=== PATIENT | male | born 1975 | race African-American/Black ===

== ENCOUNTER 2019-01-24 14:03 | Inpatient (IN) | payer SELFPAY ==
[2019-01-24 14:32] LABS: #Basophils 0.1 thou/uL (0.0-0.2); #Eosinphils 0.8 thou/uL (0.0-0.7); #Lymphocytes 2.7 thou/uL (1.20-3.40); #Monocytes 0.9 thou/uL (0.11-0.59); #Neutrophils 9.3 thou/uL (1.40-6.50); %Eosinophils 5.8 % (0.0-10.0); %Lymphocytes 19.8 % (21.0-51.0); %Monocytes 6.5 % (0.0-10.0); Hemoglobin 12.8 g/dL (14.0-18.0); Mean Corpuscular HGB CONC 31.3 g/dL (32.0-36.0); Mean Corpuscular Hemoglobin 27.6 pg (27.0-31.0); Mean Corpuscular Volume 88.4 fL (78.0-98.0); Mean Platelet Volume 7.3 fL (7.4-10.4); Platelet Count 308 thou/uL (130-400); RBC Distribution Width 14.5 % (11.5-14.5); Red Blood Cell (RBC) Count 4.62 mill/uL (4.70-6.10); White Blood Cell (WBC) Count 13.9 thou/uL (4.8-10.8)
[2019-01-24 14:55] LABS: ALT (SGPT) 47 U/L (8-55); AST (SGOT) 29 U/L (5-34); Albumin 3.9 g/dL (3.5-5.0); Alkaline Phosphatase 34 U/L (40-150); Anion Gap 12 mmol/L (10-20); BUN (Urea Nitrogen) 14 mg/dL (8.9-20.6); Bilirubin, Total 0.6 mg/dL (0.2-1.2); Calc. Creatinine Clearance 0 mL/min (70-130); Calcium 9.3 mg/dL (7.8-10.44); Carbon Dioxide 28 mmol/L (22-29); Chloride 102 mmol/L (98-107); Estimated GFR-MDRD 66; Globulin 2.5 g/dL (2.4-3.5); Glucose 108 mg/dL (70-105); Lipase 7 U/L (8-78); Potassium 4.6 mmol/L (3.5-5.1); Protein, Total 6.4 g/dL (6.0-8.3); Sodium 137 mmol/L (136-145)
[2019-01-24] MEDS ORDERED: ISOVUE-370 76%-LOCM 1 ML ONE (15:10)
[2019-01-24 17:26] LABS: Bilirubin Negative (Negative); Blood, Urine Negative (Negative); Clarity CLEAR (Clear); Glucose, Urine (Dipstick) Negative (Negative); Leukocyte Negative (Negative); Nitrite Negative (Negative); Protein, Urine (Dipstick) Negative (Neg-Trace); Specific Gravity, Urine 1.016 (1.002-1.036); pH, Urine 6.5 (5.0-9.0)
[2019-01-24] MEDS ORDERED: Morphine 4 MG/ML VIAL ONE (18:02)
[2019-01-24] MEDS ORDERED: Ondansetron PF 4 MG/2 ML Vial ONE (18:02)
[2019-01-24 18:09] LABS: Troponin I 0.038 ng/mL (< 0.028)
--- NOTE | 2019-01-24 19:10 | CT ---
CT abdomen and pelvis with IV contrast HISTORY: Abdomen pain. Nausea. COMPARISON: 10/29/2007. FINDINGS: Lung bases are clear. Gallbladder is surgically absent. Liver, spleen, kidneys, adrenal gla nds, and pancreas are unremarkable. Nonspecific lymph nodes throughout the retroperitoneum. No evidence of bowel obstruction. Urinary bladder is decompressed. IMPRESSION: No significant abnormalities are demonstrated.
[2019-01-24 19:18] LABS: Troponin I 0.048 ng/mL (< 0.028)
--- NOTE | 2019-01-24 20:20 | RAD ---
PORTABLE CHEST 01/24/19 PROVIDED CLINICAL HISTORY: Myocardial infarction, abdominal pain. FINDINGS: No comparisons. Evaluation is limited by patient body habitus. The cardiac silhouette appears enlarged. Prominence of the pulmonary vasculature and pulmonary interstitium. No lobar consolidation, pleural fluid or pneum othorax apparent. IMPRESSION: Cardiomegaly and findings suggesting congestive failure. POS: DINORAH
[2019-01-24] MEDS ORDERED: Aspirin Chewable 81 MG TAB ONE (20:23)
[2019-01-24] MEDS ORDERED: Nitroglycerin 2% Ointment 1 INCH/1 GM Packet ONE (20:52)
[2019-01-24] MEDS ORDERED: hydrALAZINE 20 MG/ML VIAL SLOW IVP PRN (21:54)
[2019-01-24] MEDS ORDERED: Carvedilol 3.125 MG TAB PO SCH (22:00)
[2019-01-24] MEDS ORDERED: Nitroglycerin 2% Ointment 1 INCH/1 GM Packet TOP SCH (22:00)
[2019-01-24] MEDS ORDERED: Furosemide 20 MG/2 ML VIAL SLOW IVP SCH (22:00)
[2019-01-25 01:40] VITALS: BMI 40.4
--- NOTE | 2019-01-25 02:23 | HP ---
CHIEF COMPLAINT: Abdominal pain. HISTORY OF PRESENT ILLNESS: The patient is a 43-year-old male who has not seen a doctor in some time. He reports that he had the onset of some epigastric abdominal pain about 3 days ago, radiating to the right upper quadrant area. He reports he had something similar to this in the past. When he had stones removed, he is unsure given his history of whether this is gallstones or kidney stones, but he does show some right upper quadrant laparoscopic scars consistent with the cholecystectomy (his CT scan does confirm that he had a cholecystectomy). He had that laparoscopic surgery about 15 years ago. He reports that the pain starts in the xiphoid area and then moves more to the right. Along with this, he has been feeling more short of breath. He has no cough, no fever, but he does admit to orthopnea and he is typically sitting up and leaning on something in order to try to sleep. He does snore loudly. He denies any recent viral or flu-like illnesses. He does admit to some lightheadedness. States he had an episode of vomiting here in the emergency department, but did not have any prior to that. REVIEW OF SYSTEMS: The patient reports he has had an extremely regular bowel regimen three times a day and he is very proud of that. Normal bladder habits. He believes he may have some trace edema. He has had some weight gain that he is aware of. All other systems were reviewed and all pertinent positives and negatives noted in the history of present illness. PAST MEDICAL HISTORY: None. The patient has no prior diagnosis of hypertension, although he does say at one point, he tried to donate blood and was told at that time that his blood pressure was significantly elevated and he should see a doctor. PAST SURGICAL HISTORY: Cholecystectomy. SOCIAL HISTORY: The patient smokes about a pack of cigarettes per week. He drinks one bottle of liquor per month. He denies drugs. He is . He is full code. His is his surrogate decision maker. FAMILY HISTORY: Notable for hypertension, diabetes, and heart disease. His father had an MA about 1 year ago at the age of 56. ALLERGIES: NONE. MEDICATIONS: None. PHYSICAL EXAMINATION: VITAL SIGNS: Most recent blood pressure 150/110, pulse 103, respirations 20, temperature 98.4, O2 saturation 97% on room air. GENERAL APPEARANCE: Age-appropriate male, slightly obese, in no distress. He is awake, alert, oriented, pleasant, and cooperative. HEENT: PERRL. He has no OP lesions, but he does have a generous tongue and soft palate giving a relatively small airway. NECK: Neck is thick, supple, symmetric. No lymphadenopathy, JVD, or bruits. HEART: Regular rate and rhythm without murmurs, gallops, or rubs. LUNGS: Clear to auscultation bilaterally with good chest wall expansion and air exchange. ABDOMEN: Soft, nontender, and nondistended. There is tenderness to palpation in the epigastrium and the right upper quadrant with mild guarding. No masses or organomegaly. EXTREMITIES: He has trace pretibial pitting edema bilaterally. Good peripheral pulses present. NEUROLOGICAL: Fully intact. Good range of motion in all extremities and spontaneous movement. PSYCH: Normal affect and behavior. LABORATORY DATA: White count 13.9, hemoglobin 12.8. Sodium 137, potassium 4.6, chloride 102, BUN 14, creatinine is 1.4, glucose 108. LFTs normal. Troponin 0.038 with subsequent 0.048. Lipase is 7. Urinalysis negative. Chest x-ray shows some evidence of cardiomegaly with some pulmonary edema or vascular engorgement. CT abdomen and pelvis is unremarkable with the surgically absent gallbladder. EKG shows sinus tach, possibly some left atrial enlargement. IMPRESSION AND PLAN: 1. Abdominal pain. The patient had a history of cholecystectomy. He has epigastric and right upper quadrant tenderness. His CT abdomen was negative. The only concerning issue really is the fact that he had one episode of vomiting earlier, although he has subsequently eaten without difficulty and he has a bit of leukocytosis. We will continue to monitor that situation for now and keep him on a PPI. 2. New onset evidence of congestive heart failure. We will check a BNP and check echocardiogram. Get a Cardiology consult. The patient smokes and likely has had very elevated blood pressures for a very long time, possibly resulting in some hypertensive cardiomyopathy, ischemic cardiomyopathy is a possibility as well. We will see what we find on the echocardiogram. May need a heart catheterization as well. 3. Elevated troponins appears to most likely be a type 2 myocardial infarction with demand ischemia secondary to elevated blood pressure and decompensation of heart failure, although at this point, cannot rule out a type 1 just yet. We will continue with telemetry and continue checking troponins. We will maintain nitroglycerin and actually increased that to 2 inches. He has had an aspirin. We will continue with aspirin. He also will get a dose of Lasix here. 4. Hypertension. The patient has severe hypertension. He has no history of this, but it sounds like he did have a check once previously and it was very high. We will give him Coreg 3.125 starting now. We will also increase his nitroglycerin paste to 2 inches and give him a dose of Lasix. 5. Renal. The patient's estimated GFR is at 66. It is unknown what his normal baseline creatinine is. Therefore, it is unable to determine if this is chronic or new. 6. Tobacco abuse. Counseled the patient at length regarding the need to discontinue smoking as it is contributing to his cardiac issues. 7. Leukocytosis, likely demargination from the abdominal pain, acute episode. We will recheck in the morning. Job ID: [id number]
[2019-01-25 04:23] LABS: #Basophils 0.1 thou/uL (0.0-0.2); #Eosinphils 0.7 thou/uL (0.0-0.7); #Lymphocytes 3.4 thou/uL (1.20-3.40); #Neutrophils 8.2 thou/uL (1.40-6.50); %Eosinophils 5.1 % (0.0-10.0); %Lymphocytes 25.3 % (21.0-51.0); %Monocytes 7.5 % (0.0-10.0); %Neutrophils 61.2 % (42.0-75.0); Hemoglobin 12.2 g/dL (14.0-18.0); Mean Corpuscular HGB CONC 31.8 g/dL (32.0-36.0); Mean Corpuscular Hemoglobin 27.9 pg (27.0-31.0); Mean Corpuscular Volume 87.9 fL (78.0-98.0); Mean Platelet Volume 7.4 fL (7.4-10.4); Platelet Count 299 thou/uL (130-400); RBC Distribution Width 14.5 % (11.5-14.5); Red Blood Cell (RBC) Count 4.36 mill/uL (4.70-6.10); White Blood Cell (WBC) Count 13.4 thou/uL (4.8-10.8)
[2019-01-25 04:46] LABS: Anion Gap 15 mmol/L (10-20); BUN (Urea Nitrogen) 15 mg/dL (8.9-20.6); Calc. Creatinine Clearance 109 mL/min (70-130); Calcium 9.1 mg/dL (7.8-10.44); Carbon Dioxide 26 mmol/L (22-29); Cardiac Risk 4.3 (Less than 4.5); Chloride 102 mmol/L (98-107); Cholesterol 153 mg/dl (< 200 Desired); Estimated GFR-MDRD 62; Glucose 95 mg/dL (70-105); HDL Cholesterol 36 mg/dL (>60 Neg Risk); LDL Cholesterol, Calculated 98 mg/dL; Potassium 4.2 mmol/L (3.5-5.1); Sodium 139 mmol/L (136-145); Triglycerides 97 mg/dL (Less than 150)
[2019-01-25] MEDS ORDERED: Furosemide 40 MG/4 ML VIAL SLOW IVP SCH (08:45)
[2019-01-25] MEDS: Enoxaparin Sodium 40 MG/0.4 ML SYRINGE SC SCH (09:44)
[2019-01-25] MEDS: Aspirin 81 mg Enteric Coated Tablet PO SCH (09:45)
[2019-01-25] MEDS: Carvedilol 3.125 MG TAB PO SCH ×2 (09:45→16:33)
[2019-01-25] MEDS: Nitroglycerin 2% Ointment 1 INCH/1 GM Packet TOP SCH ×2 (09:45→20:56)
[2019-01-25] MEDS: Furosemide 40 MG/4 ML VIAL SLOW IVP SCH (09:46)
--- NOTE | 2019-01-25 13:01 | CON ---
DATE OF CONSULTATION: 01/25/2019 INDICATION FOR CONSULTATION: A 43-year-old patient with shortness of breath, probably new onset congestive heart failure, and indeterminate cardiac enzymes. HISTORY OF PRESENT ILLNESS: This is a 43-year-old gentleman, who has had no previous cardiac history that he is aware, but does have a history of hypertension, which has not been treated. He complained of some abdominal discomfort. He has had cholecystectomy in the past. He presented to the hospital. Also, he complains of shortness of breath. He has had shortness of breath for quite some time. He has known about his high blood pressure in the past, but has felt that it was just due to family situations. 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 He denied any chest pain, but did have abdominal discomfort. He has continued to smoke about a pack every week of cigarettes and has some alcohol use, perhaps a bottle of whiskey every week. When he presented to the hospital, his white blood cell count was elevated, concerning for the abdominal discomfort, but his cardiac enzymes were indeterminate. His BNP also was elevated, it is now over 1203. He had an echocardiogram this morning, which shows ejection fraction of probably 20% to 25%. At this time, he denies chest pain. He is more comfortable, but does continue to have some abdominal discomfort. He also tells me that he occasionally has lightheadedness. PAST MEDICAL HISTORY: Significant for the cholecystectomy and hypertension. SOCIAL HISTORY: He is . He has 7 children. He smokes a pack cigarettes a week. He has alcohol use. 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 MEDICATIONS: Prior to admission were none. ALLERGIES: NONE. PRESENT MEDICATIONS: Include; 1. Aspirin. 2. Coreg. 3. Lovenox. 4. Lasix. 5. Hydralazine. 6. Nitroglycerin paste. 7. Protonix. REVIEW OF SYSTEMS: He complains of some blurred vision and abdominal pain. Otherwise, 12-point review of systems unremarkable except for what is noted in history of present illness. PHYSICAL EXAMINATION: GENERAL: Reveals a middle-aged gentleman, who is overweight. Blood pressure is 140/96 at this time and it was elevated previously at 162/95, and I believe in the emergency room earlier was also elevated on the first blood pressure here was 155/110. He seems to be doing much better with medical management. Heart rate is 94, shows a sinus rhythm. He is afebrile and respiratory rate is 18. HEENT: Reveals head to be normocephalic and atraumatic. NECK: Carotid pulses are present without any bruits. CHEST: Clear to auscultation. CARDIOVASCULAR: Reveals a regular rate and rhythm. Heart sounds are somewhat distant, but the patient is obese. Did not hear any significant murmurs, heaves, thrills, bruits, or rubs. No S3 or S4 was appreciated. ABDOMEN: Slightly tender. He has positive bowel sounds. I did not palpate any masses, but the patient has tenderness. Unable to fully evaluate due to the tenderness. EXTREMITIES: Show no clubbing, cyanosis, or edema. Pedal pulses are present. NEUROLOGIC: The patient appears to be fully intact. SKIN: Warm and dry. LABORATORY DATA: EKG shows a normal sinus rhythm with no acute changes. Chest x-ray shows cardiomegaly with signs of congestive heart failure. IMPRESSION AND PLAN: 1. New onset congestive heart failure. I will agree with the present management. I reviewed his medications. I would continue his Lasix and hydralazine as well as a nitroglycerin. 2. Cardiomyopathy. We will continue to follow this. He already perhaps meets the requirements for an AICD. He may need to have a LifeVest prior to discharge. 3. Abdominal pain will be dealt with by the primary care service. 4. History of tobacco abuse. He will absolutely need to stop smoking. We have discussed this issue today. 5. History of renal insufficiency, most likely associated with his hypertension. 6. Elevated WBC, which may be due to abdominal etiology. We are more than happy to continue to follow the patient with you, but we will continue his medications and titrate as possible. When the patient is discharged, he may need to follow up with the [facility] Failure [facility]. He does not have any significant symptoms of the heart failure at this time. He says he does complain of shortness of breath with minimal exertion. At some point in time, he may need also undergo a stress test to rule out evidence of underlying ischemia as a possible etiology of his cardiomyopathy. I suspect this is due to hypertension. Job ID: [id number]
--- NOTE | 2019-01-25 14:09 | PDOC.PN ---
- Subjective Encounter Start Date: 01/25/19 Encounter Start Time: 14:07 Subjective: feels much better.no CP/SOB.no cough - Objective Resuscitation Status - Order Detail: 01/24/19 21:49 Resuscitation Status Routine Resuscitation Status: FULL: Full Resuscitation MAR Reviewed: Yes Vital Signs & Weight: Vital Signs (12 hours) Temp Pulse Resp BP Pulse Ox 01/25/19 12:00 98.0 F 111 H 20 143/113 H 98 01/25/19 09:38 92 L 01/25/19 07:00 97.8 F 94 18 148/96 H 92 L 01/25/19 03:49 97.8 F 94 16 162/95 H 92 L Weight Weight 261 lb 6.4 oz I&O: 01/24/19 01/25/19 01/26/19 06:59 06:59 06:59 Intake Total 400 Output Total 1600 Balance -1200 Result Diagrams: 01/25/19 04:00 01/25/19 04:00 Additional Labs: Laboratory Tests 01/24/19 01/24/19 01/24/19 14:20 14:20 14:20 Creatinine 1.41 H Troponin I 0.038 H B-Natriuretic Peptide 965.7 H 01/24/19 01/24/19 01/24/19 18:43 21:51 22:07 Creatinine Troponin I 0.048 H 0.060 H B-Natriuretic Peptide 1203.1 H 01/25/19 04:00 Creatinine 1.49 H Troponin I B-Natriuretic Peptide Phys Exam - Physical Examination Constitutional: NAD HEENT: PERRLA, moist MMs, sclera anicteric, oral pharynx no lesions Neck: no nodes, no JVD, supple, full ROM Respiratory: no wheezing, no rhonchi, clear to auscultation bilateral basilar crackles Cardiovascular: RRR, no significant murmur Gastrointestinal: soft, non-tender, no distention, positive bowel sounds Musculoskeletal: no edema, pulses present Neurological: non-focal, normal sensation, moves all 4 limbs Psychiatric: normal affect, A&O x 3 Skin: no rash Dx/Plan (1) Acute CHF Code(s): I50.9 - HEART FAILURE, UNSPECIFIED Status: Acute Qualifiers: Heart failure type: unspecified Qualified Code(s): I50.9 - Heart failure, unspecified Comment: ECHO pending (2) Hypertension, uncontrolled Code(s): I10 - ESSENTIAL (PRIMARY) HYPERTENSION Status: Acute (3) CB (acute kidney injury) Code(s): N17.9 - ACUTE KIDNEY FAILURE, UNSPECIFIED Status: Acute (4) Type 2 myocardial infarction Code(s): I21.A1 - MYOCARDIAL INFARCTION TYPE 2 Status: Acute (5) Tobacco abuse Code(s): Z72.0 - TOBACCO USE Status: Chronic Comment: 1 pack per week - Plan DVT proph w/SCDs BP better controlled.stop lisinopril as Cr higher.baseline unknown -: restart hydralazine and cont TD NG.on BB -: cont diuresis w close monitoring of renal Fx -: suspect hypertensive cardionuopathy.ECHO pending. -: no more abd pain-suspect bowel wall edema from CHF. * . Review of Systems - Review of Systems Constitutional: negative: fever, chills, sweats, weakness, malaise, other ENT: negative: Ear Pain, Ear Discharge, Nose Pain, Nose Discharge, Nose Congestion, Mouth Pain, Mouth Swelling, Throat Pain, Throat Swelling, Other Respiratory: SOB with Excertion Cardiovascular: negative: chest pain, palpitations, orthopnea, paroxysmal nocturnal dyspnea, edema, light headedness, other Gastrointestinal: negative: Nausea, Vomiting, Abdominal Pain, Diarrhea, Constipation, Melena, Hematochezia, Other Genitourinary: negative: Dysuria, Frequency, Incontinence, Hematuria, Retention , Other Musculoskeletal: negative: Neck Pain, Shoulder Pain, Arm Pain, Back Pain, Hand Pain, Leg Pain, Foot Pain, Other Neurological: negative: Weakness, Numbness, Incoordination, Change in Speech, Confusion, Seizures, Other - Medications/Allergies Allergies/Adverse Reactions: Allergies Allergy/AdvReac Type Severity Reaction Status Date / Time No Known Drug Allergies Allergy Verified 01/25/19 01:38 Medications: Current Medications Aspirin (Ecotrin) 81 mg PO DAILY [facility] Last Admin: 01/25/19 09:45 Dose: 81 mg Carvedilol (Coreg) 3.125 mg PO BID-[facility] Last Admin: 01/25/19 09:45 Dose: 3.125 mg Enoxaparin Sodium (Lovenox) 40 mg SC 0900 [facility] Last Admin: 01/25/19 09:44 Dose: 40 mg Furosemide (Lasix) 40 mg SLOW IVP DAILY [facility] Last Admin: 01/25/19 09:46 Dose: Not Given Hydralazine HCl (Apresoline) 10 mg SLOW IVP Q4H PRN PRN Reason: SBP > 185, DBP > 100 Nitroglycerin (Nitro-Bid 2% Ointment) 2 inch TOP BID [facility] Last Admin: 01/25/19 09:45 Dose: 2 inch Pantoprazole Sodium (Protonix) 40 mg PO DAILY [facility] Last Admin: 01/25/19 09:45 Dose: 40 mg
[2019-01-25] MEDS ORDERED: Spironolactone 25 MG TAB PO SCH (18:15)
[2019-01-26] MEDS ORDERED: Acetaminophen 325 MG TAB PO PRN (02:46)
[2019-01-26 06:26] LABS: Anion Gap 13 mmol/L (10-20); BUN (Urea Nitrogen) 20 mg/dL (8.9-20.6); Calc. Creatinine Clearance 106 mL/min (70-130); Calcium 8.9 mg/dL (7.8-10.44); Carbon Dioxide 27 mmol/L (22-29); Chloride 101 mmol/L (98-107); Estimated GFR-MDRD 61; Glucose 108 mg/dL (70-105); Potassium 4.1 mmol/L (3.5-5.1); Sodium 137 mmol/L (136-145)
[2019-01-26] MEDS: Enoxaparin Sodium 40 MG/0.4 ML SYRINGE SC SCH (09:22)
[2019-01-26] MEDS: Carvedilol 3.125 MG TAB PO SCH ×3 (09:23→17:30)
[2019-01-26] MEDS: Spironolactone 25 MG TAB PO SCH (09:23)
[2019-01-26] MEDS: Furosemide 40 MG/4 ML VIAL SLOW IVP SCH (09:23)
[2019-01-26] MEDS: Aspirin 81 mg Enteric Coated Tablet PO SCH (09:24)
--- NOTE | 2019-01-26 11:57 | PDOC.PN ---
- Subjective Encounter Start Date: 01/26/19 Encounter Start Time: 11:57 Subjective: feels better. no CP/SOB.able to walk without getting windede -: wants to stop Lovenox shots - Objective Resuscitation Status - Order Detail: 01/24/19 21:49 Resuscitation Status Routine Resuscitation Status: FULL: Full Resuscitation MAR Reviewed: Yes Vital Signs & Weight: Vital Signs (12 hours) Temp Pulse Resp BP Pulse Ox 01/26/19 08:00 98.5 F 89 20 143/97 H 92 L 01/26/19 03:54 97.4 F L 95 16 152/94 H 95 01/26/19 02:51 97 Weight Weight 254 lb 3.2 oz I&O: 01/25/19 01/26/19 01/27/19 06:59 06:59 06:59 Intake Total 400 1264 Output Total 1600 82277 Balance -2552 -97266 Result Diagrams: 01/25/19 04:00 01/26/19 05:11 Additional Labs: Laboratory Tests 01/24/19 01/25/19 01/26/19 14:20 04:00 05:11 Creatinine 1.41 H 1.49 H 1.51 H Phys Exam - Physical Examination Constitutional: NAD HEENT: PERRLA, moist MMs, sclera anicteric, oral pharynx no lesions Neck: no nodes, no JVD, supple, full ROM Respiratory: no wheezing, no rales, no rhonchi, clear to auscultation bilateral Cardiovascular: RRR, no significant murmur, no rub Gastrointestinal: soft, non-tender, no distention, positive bowel sounds Musculoskeletal: no edema, pulses present Neurological: non-focal, normal sensation, moves all 4 limbs Psychiatric: normal affect, A&O x 3 Skin: no rash Dx/Plan (1) Acute CHF Code(s): I50.9 - HEART FAILURE, UNSPECIFIED Status: Acute Qualifiers: Heart failure type: unspecified Qualified Code(s): I50.9 - Heart failure, unspecified Comment: ECHO shows severe cardiomyopathy w EF 20-25% (2) Hypertension, uncontrolled Code(s): I10 - ESSENTIAL (PRIMARY) HYPERTENSION Status: Acute Comment: Improved control (3) CB (acute kidney injury) Code(s): N17.9 - ACUTE KIDNEY FAILURE, UNSPECIFIED Status: Acute (4) Type 2 myocardial infarction Code(s): I21.A1 - MYOCARDIAL INFARCTION TYPE 2 Status: Acute (5) Tobacco abuse Code(s): Z72.0 - TOBACCO USE Status: Chronic Comment: 1 pack per week - Plan out of bed/ambulate, DVT proph w/SCDs satrted on aldactone. Increase BB.cont ASA -: no GABY-I/ARB due to CB.add later if renal Fx improves -: ? etiology.CAD Vs Hypertensive cardiomyopathy -: may need Cath -: Life vest prior to Dc w OP F?U w ECHO in 3 months.pt educated * .BNP and clinically improved.reduce lasix * Stop TD NG.add PO Nitrate in form of Imdur * am labs Review of Systems - Review of Systems Constitutional: negative: fever, chills, sweats, weakness, malaise, other ENT: negative: Ear Pain, Ear Discharge, Nose Pain, Nose Discharge, Nose Congestion, Mouth Pain, Mouth Swelling, Throat Pain, Throat Swelling, Other Respiratory: negative: Cough, Dry, Shortness of Breath, Hemoptysis, SOB with Excertion, Pleuritic Pain, Sputum, Wheezing Cardiovascular: negative: chest pain, palpitations, orthopnea, paroxysmal nocturnal dyspnea, edema, light headedness, other Gastrointestinal: negative: Nausea, Vomiting, Abdominal Pain, Diarrhea, Constipation, Melena, Hematochezia, Other Genitourinary: negative: Dysuria, Frequency, Incontinence, Hematuria, Retention , Other Musculoskeletal: negative: Neck Pain, Shoulder Pain, Arm Pain, Back Pain, Hand Pain, Leg Pain, Foot Pain, Other Skin: negative: Rash, Lesions, Demarco, Bruising, Other Neurological: negative: Weakness, Numbness, Incoordination, Change in Speech, Confusion, Seizures, Other - Medications/Allergies Allergies/Adverse Reactions: Allergies Allergy/AdvReac Type Severity Reaction Status Date / Time No Known Drug Allergies Allergy Verified 01/25/19 01:38 Medications: Current Medications Acetaminophen (Tylenol) 650 mg PO Q6H PRN PRN Reason: Headache/Fever or Pain Last Admin: 01/26/19 02:52 Dose: 650 mg Aspirin (Ecotrin) 81 mg PO DAILY [facility] Last Admin: 01/26/19 09:24 Dose: 81 mg Carvedilol (Coreg) 6.25 mg PO BID-[facility] Last Admin: 01/26/19 09:23 Dose: 6.25 mg Furosemide (Lasix) 40 mg SLOW IVP DAILY [facility] Last Admin: 01/26/19 09:23 Dose: 40 mg Hydralazine HCl (Apresoline) 10 mg SLOW IVP Q4H PRN PRN Reason: SBP > 185, DBP > 100 Isosorbide Mononitrate (Imdur Er) 30 mg PO DAILY [facility] Last Admin: 01/26/19 09:23 Dose: 30 mg Pantoprazole Sodium (Protonix) 40 mg PO DAILY [facility] Last Admin: 01/26/19 09:23 Dose: 40 mg Spironolactone (Aldactone) 12.5 mg PO [facility] Last Admin: 01/26/19 09:23 Dose: 12.5 mg
--- NOTE | 2019-01-26 14:13 | PDOC.CTH ---
Cardiology Progress Note - Subjective The pt seen and examined. No overnight events. No cardiac complaints. - Objective Vital Signs Temp Pulse Resp BP Pulse Ox 01/26/19 12:05 98.8 F 84 18 156/92 H 95 01/26/19 08:00 98.5 F 89 20 143/97 H 92 L 01/26/19 03:54 97.4 F L 95 16 152/94 H 95 01/26/19 02:51 97 Weight 254 lb 3.2 oz 01/25/19 01/26/19 01/27/19 06:59 06:59 06:59 Intake Total 400 1264 Output Total 1600 42833 3200 Balance -1200 -80487 -3200 - Physical Examination General/Neuro: alert & oriented x3 Neck: no JVD present Lungs: CTA Heart: RRR Abdomen: soft Extremities: other: (No edema) - Telemetry Telemetry Rhythm: SR - Labs Result Diagrams: 01/25/19 04:00 01/26/19 05:11 Troponin/CKMB Troponin I 0.060 ng/mL (< 0.028) H 01/24/19 21:51 - Assessment/Plan 1. New onset Systolic HF with EF 20-25% - stable with RA; on BBlocker, Lasix, Aldactone. Not on GABY/ARB due to CB; Stress test today; 2. HTN - stable 3. CB - worsening 4. Type 2 UT - demand ischemia 2/2 CHF; Stress test today 5. Tobacco Abuse - smoking cessation education given to the pt MAR Reviewed * LifeVest prior to Dc w OP F/U w ECHO in 3 months. Pt. seen and eval. by me. 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 If the stress test is abnormal then cardiac cath. Review of Systems - Review of Systems Constitutional: reports: no symptoms reported EENTM: reports: no symptoms reported Respiratory: reports: no symptoms reported Cardiac (ROS): reports: no symptoms reported ABD/GI: reports: no symptoms reported : reports: no symptoms reported Musculoskeletal: reports: no symptoms reported
--- NOTE | 2019-01-26 18:20 | PDOC.CTH ---
Cardiology Progress Note - Subjective The pt seen and examined. No overnight events. No cardiac complaints. - Objective Vital Signs Temp Pulse Resp BP Pulse Ox 01/26/19 12:05 98.8 F 84 18 156/92 H 95 01/26/19 08:00 98.5 F 89 20 143/97 H 92 L Weight 254 lb 3.2 oz 01/25/19 01/26/19 01/27/19 06:59 06:59 06:59 Intake Total 400 1264 Output Total 1600 42196 3200 Balance -1200 46524 -3200 - Labs Result Diagrams: 01/25/19 04:00 01/26/19 05:11 Troponin/CKMB Troponin I 0.060 ng/mL (< 0.028) H 01/24/19 21:51
[2019-01-27 05:56] LABS: Anion Gap 12 mmol/L (10-20); BUN (Urea Nitrogen) 20 mg/dL (8.9-20.6); Calc. Creatinine Clearance 104 mL/min (70-130); Calcium 9.4 mg/dL (7.8-10.44); Carbon Dioxide 29 mmol/L (22-29); Chloride 103 mmol/L (98-107); Estimated GFR-MDRD 62; Glucose 106 mg/dL (70-105); Potassium 4.2 mmol/L (3.5-5.1); Sodium 140 mmol/L (136-145)
[2019-01-27] MEDS: Aspirin 81 mg Enteric Coated Tablet PO SCH (10:03)
[2019-01-27] MEDS: Carvedilol 3.125 MG TAB PO SCH (10:03)
[2019-01-27] MEDS: Furosemide 40 MG TAB PO SCH (10:03)
[2019-01-27] MEDS: Spironolactone 25 MG TAB PO SCH (10:04)
--- NOTE | 2019-01-27 11:03 | NM ---
MYOCARDIAL PERFUSION SCAN WITH SPECT IMAGING: HISTORY: New onset systolic heart failure. TECHNIQUE/FINDINGS: Examination is performed as a 2 day study using 33 mCi 99m-technetium sestamibi on the stress and 27 mCi on the resting images. This shows a fairly normal distribution of radiopharmaceutical without sig ns of ischemia or scar. Ventricular chamber is dilated. WALL MOTION: There is severe global hypokinesis. LEFT VENTRICULAR EJECTION FRACTION: The calculated left ventricular ejection fraction is 27%. IMPRESSION: Severe global hypokinesis with diminished left ventricular ejection fraction of 27%. POS: RICARDO
--- NOTE | 2019-01-27 12:45 | PDOC.PN ---
- Subjective Encounter Start Date: 01/27/19 Encounter Start Time: 12:44 Subjective: feels wovrewhelmed d/t financial difficulties -: unable to afford LifeVest . -: clinically feels much better. able to breathe easier .no CP/leg swelling - Objective Resuscitation Status - Order Detail: 01/24/19 21:49 Resuscitation Status Routine Resuscitation Status: FULL: Full Resuscitation MAR Reviewed: Yes Vital Signs & Weight: Vital Signs (12 hours) Temp Pulse Resp BP Pulse Ox 01/27/19 11:19 97.9 F 88 18 151/94 H 91 L 01/27/19 10:45 98.3 F 87 16 164/95 H 98 01/27/19 07:41 97.8 F 91 18 149/107 H 92 L 01/27/19 04:27 98.1 F 94 20 177/99 H 94 L Weight Weight 252 lb 3.2 oz I&O: 01/26/19 01/27/19 01/28/19 06:59 06:59 06:59 Intake Total 1264 720 Output Total 72427 5750 [id number] Result Diagrams: 01/25/19 04:00 01/27/19 05:17 Additional Labs: Laboratory Tests 01/24/19 01/24/19 01/24/19 14:20 14:20 22:07 Creatinine 1.41 H B-Natriuretic Peptide 965.7 H 1203.1 H 01/25/19 01/26/19 01/26/19 04:00 05:11 05:11 Creatinine 1.49 H 1.51 H B-Natriuretic Peptide 670.1 H 01/27/19 05:17 Creatinine 1.49 H B-Natriuretic Peptide Phys Exam - Physical Examination Constitutional: NAD HEENT: PERRLA, moist MMs, sclera anicteric, oral pharynx no lesions Neck: no nodes, no JVD, supple, full ROM Respiratory: no wheezing, no rales, no rhonchi, clear to auscultation bilateral Cardiovascular: RRR, no significant murmur, no rub Gastrointestinal: soft, non-tender, no distention, positive bowel sounds Musculoskeletal: no edema, pulses present Neurological: non-focal, normal sensation, moves all 4 limbs Psychiatric: normal affect, A&O x 3 Skin: no rash Dx/Plan (1) Acute CHF Code(s): I50.9 - HEART FAILURE, UNSPECIFIED Status: Acute Qualifiers: Heart failure type: systolic Qualified Code(s): I50.21 - Acute systolic ( congestive) heart failure Comment: ECHO shows severe cardiomyopathy w EF 20-25% (2) Hypertension, uncontrolled Code(s): I10 - ESSENTIAL (PRIMARY) HYPERTENSION Status: Acute Comment: Improved control (3) CB (acute kidney injury) Code(s): N17.9 - ACUTE KIDNEY FAILURE, UNSPECIFIED Status: Acute (4) Type 2 myocardial infarction Code(s): I21.A1 - MYOCARDIAL INFARCTION TYPE 2 Status: Acute (5) Tobacco abuse Code(s): Z72.0 - TOBACCO USE Status: Chronic Comment: 1 pack per week - Plan PT/OT, out of bed/ambulate, DVT proph w/SCDs will need Life vest prior to DC.pt encouraged to seek family help w payment -: Stress test today to see if he needs Cath or not.cardiology following -: HD stable. cont ASA,BB,Nitrate,aldactone and lasix -: consult [facility] for prescription help. -: monitor renal FX. BP better controlled. * . Review of Systems - Review of Systems Constitutional: negative: fever, chills, sweats, weakness, malaise, other ENT: negative: Ear Pain, Ear Discharge, Nose Pain, Nose Discharge, Nose Congestion, Mouth Pain, Mouth Swelling, Throat Pain, Throat Swelling, Other Respiratory: negative: Cough, Dry, Shortness of Breath, Hemoptysis, SOB with Excertion, Pleuritic Pain, Sputum, Wheezing Cardiovascular: negative: chest pain, palpitations, orthopnea, paroxysmal nocturnal dyspnea, edema, light headedness, other Gastrointestinal: negative: Nausea, Vomiting, Abdominal Pain, Diarrhea, Constipation, Melena, Hematochezia, Other Genitourinary: negative: Dysuria, Frequency, Incontinence, Hematuria, Retention , Other Musculoskeletal: negative: Neck Pain, Shoulder Pain, Arm Pain, Back Pain, Hand Pain, Leg Pain, Foot Pain, Other Neurological: negative: Weakness, Numbness, Incoordination, Change in Speech, Confusion, Seizures, Other - Medications/Allergies Allergies/Adverse Reactions: Allergies Allergy/AdvReac Type Severity Reaction Status Date / Time No Known Drug Allergies Allergy Verified 01/25/19 01:38 Medications: Current Medications Acetaminophen (Tylenol) 650 mg PO Q6H PRN PRN Reason: Headache/Fever or Pain Last Admin: 01/26/19 02:52 Dose: 650 mg Aspirin (Ecotrin) 81 mg PO DAILY [facility] Last Admin: 01/27/19 10:03 Dose: 81 mg Carvedilol (Coreg) 6.25 mg PO BID-[facility] Last Admin: 01/27/19 10:03 Dose: 6.25 mg Furosemide (Lasix) 40 mg PO DAILY-[facility] Last Admin: 01/27/19 10:03 Dose: 40 mg Hydralazine HCl (Apresoline) 10 mg SLOW IVP Q4H PRN PRN Reason: SBP > 185, DBP > 100 Isosorbide Mononitrate (Imdur Er) 30 mg PO DAILY [facility] Last Admin: 01/27/19 10:05 Dose: 30 mg Pantoprazole Sodium (Protonix) 40 mg PO DAILY [facility] Last Admin: 01/27/19 10:05 Dose: 40 mg Spironolactone (Aldactone) 12.5 mg PO QA-[facility] Last Admin: 01/27/19 10:04 Dose: 12.5 mg
[2019-01-27] MEDS ORDERED: Carvedilol 6.25 MG TAB PO SCH (13:45)
--- NOTE | 2019-01-27 13:48 | PDOC.CTH ---
Cardiology Progress Note - Subjective The pt seen and examined. No overnight events. No cardiac complaints. CHF education given to the pt and family. - Objective Vital Signs Temp Pulse Resp BP Pulse Ox 01/27/19 11:19 97.9 F 88 18 151/94 H 91 L 01/27/19 10:45 98.3 F 87 16 164/95 H 98 01/27/19 07:41 97.8 F 91 18 149/107 H 92 L 01/27/19 04:27 98.1 F 94 20 177/99 H 94 L Weight 252 lb 3.2 oz 01/26/19 01/27/19 01/28/19 06:59 06:59 06:59 Intake Total 1264 720 Output Total 54306 5750 Balance -87059 -8711 - Physical Examination General/Neuro: alert & oriented x3 Neck: no JVD present Lungs: CTA Heart: RRR Extremities: other: (No edema) - Telemetry Telemetry Rhythm: SR - Labs Result Diagrams: 01/25/19 04:00 01/27/19 05:17 Troponin/CKMB Troponin I 0.060 ng/mL (< 0.028) H 01/24/19 21:51 - Assessment/Plan 1. New onset Systolic HF with EF 20-25% - stable with RA; on BBlocker, Lasix, Aldactone. Not on GABY/ARB due to CB; Stress test today showed no ischemia; 2. HTN - increase Coreg to 12.5mg BID; 3. CB - stable 4. Type 2 CT - demand ischemia 2/2 CHF; Stress test today showed no ischemia 5. Tobacco/ETOH Abuse - smoking/ETOH cessation education given to the pt MAR Reviewed * The pt will d/c without LifeVest due to his financial status and no insurance ; The pt will F/U w ECHO in 3 months. Pt. seen and eval. by me. I agree with the A/P by the [employer]. Chest clear. RRR. Hopefully the EF will improve with medical management. If the renal function improves then Entresto would likely be beneficial in this pt. He will need some financial assistance. gjm Review of Systems - Review of Systems Constitutional: reports: no symptoms reported EENTM: reports: no symptoms reported Respiratory: reports: no symptoms reported Cardiac (ROS): reports: no symptoms reported ABD/GI: reports: no symptoms reported : reports: no symptoms reported Musculoskeletal: reports: no symptoms reported
[2019-01-27] MEDS ORDERED: Regadenoson 0.4 MG/5 ML SYRINGE ONE (14:15)
[2019-01-27] MEDS: Carvedilol 6.25 MG TAB PO SCH (17:56)
[2019-01-28] MEDS: Aspirin 81 mg Enteric Coated Tablet PO SCH (08:36)
[2019-01-28] MEDS: Carvedilol 6.25 MG TAB PO SCH (08:36)
[2019-01-28] MEDS: Spironolactone 25 MG TAB PO SCH (08:36)
[2019-01-28] MEDS: Furosemide 40 MG TAB PO SCH (08:36)
--- NOTE | 2019-01-28 10:17 | PDOC.CTH ---
Cardiology Progress Note - Subjective Pt. seen and eval. by me. No new events. no complaints. - Objective Vital Signs Temp Pulse Resp BP Pulse Ox 01/28/19 08:00 98.7 F 86 16 138/82 97 01/28/19 03:54 98.6 F 89 16 145/87 H 93 L 01/28/19 00:00 98.6 F 85 16 140/85 100 Weight 247 lb 3.2 oz 01/27/19 01/28/19 01/29/19 06:59 06:59 06:59 Intake Total 720 1180 Output Total 5750 425 Balance -5030 755 - Physical Examination General/Neuro: alert & oriented x3 Neck: no JVD present Lungs: CTA Heart: RRR Abdomen: NT/ND, soft - Labs Result Diagrams: 01/25/19 04:00 01/27/19 05:17 Troponin/CKMB Troponin I 0.060 ng/mL (< 0.028) H 01/24/19 21:51 - Assessment/Plan 1. New onset Systolic HF with EF 20-25% - stable with RA; on BBlocker, Lasix, Aldactone. Not on GABY/ARB due to CB; Stress test today showed no ischemia; 2. HTN - increase Coreg to 12.5mg BID; Stable on present meds. 3. CB - stable 4. Type 2 [place] - demand ischemia 2/2 CHF; Stress test: no ischemia 5. Tobacco/ETOH Abuse - smoking/ETOH cessation education given to the pt MAR Reviewed * The pt will d/c without LifeVest due to his financial status and no insurance ; The pt will F/U w ECHO in 3 months. Okay to d/c . Pt. seen and eval. by me. Chest clear. RRR. Hopefully the EF will improve with medical management. If the renal function improves then Entresto would likely be beneficial in this pt. He will need some financial assistance. carlos
[2019-01-28 11:54] VITALS: BP 120/61; TEMP 98
--- NOTE | 2019-01-28 13:27 | DIS ---
DATE OF ADMISSION: 01/24/2019 DATE OF DISCHARGE: 01/28/2019 DISCHARGE DISPOSITION: Home. FOLLOWUP: Follow up with primary care physician at [facility] in 1 week. The patient was seen and examined on the day of discharge. Denies any new complaints. No chest pain, shortness of breath, palpitations reported. He has been extensively counseled on congestive heart failure. DISCHARGE MEDICATIONS: 1. Aspirin 81 mg daily. 2. Carvedilol 12.5 mg b.i.d. 3. Lasix 40 mg daily. 4. Isosorbide mononitrate 30 mg daily. 5. Aldactone 12.5 mg daily. Repeat basic metabolic profile after 1 week is recommended, primary care physician advised to follow. DIAGNOSTIC TEST: BNP on admission 1200. Troponin 0.060. Creatinine on the day of discharge is 1.49. BRIEF HOSPITAL COURSE: The patient is a 43-year-old male, who presented to the emergency room with shortness of breath and abdominal distention. His workup was consistent with congestive heart failure exacerbation. Echocardiogram showed left ventricular ejection fraction of 20% to 25% with mild tricuspid regurgitation and mild mitral regurgitation. He was evaluated by Cardiology. A stress test was performed on the that showed severe global hypokinesis with ejection fraction of 27%. There was no reversible ischemia. His medications have been optimized by Cardiology. GABY inhibitor and ARB will be avoided due to renal dysfunction. His weight on the day of discharge is 247 pounds from 265 pounds. IV Lasix has been switched to p.o. FINAL DIAGNOSES: 1. Acute systolic heart failure exacerbation. Ejection fraction 20% to 25%. No GABY inhibitor or ARB due to renal dysfunction. 2. Hypertension. 3. Acute kidney injury versus chronic kidney disease. Repeat basic metabolic profile is recommended as outpatient. 4. Type 2 myocardial infarction secondary to increased demand. 5. Tobacco dependence. The patient was counseled. 6. Alcohol dependence, the patient was counseled. DIAGNOSTIC TESTS: Cholesterol 153, LDL 98, HDL 36, triglyceride 97. PLAN: Plan of care was discussed with the patient in detail. He stated understanding. Job ID: [id number]
== END 2019-01-28 16:11 | disposition home or self-care (01) | DRG 280 ==
LOC: ERS 14:03 → 2SE 20:21
PROVIDERS: ADMIT Internal Medicine; ATTEND Internal Medicine
DX: I13.0 Hypertensive heart and chronic kidney disease with heart failure and stage 1 through stage 4 chronic kidney disease, or unspecified chronic kidney disease (principal); I21.A1 Myocardial infarction type 2; I50.23 Acute on chronic systolic (congestive) heart failure; N17.9 Acute kidney failure, unspecified; F17.210 Nicotine dependence, cigarettes, uncomplicated; I42.9 Cardiomyopathy, unspecified; Z90.49 Acquired absence of other specified parts of digestive tract; Z79.82 Long term (current) use of aspirin; Z79.899 Other long term (current) drug therapy
CPT/HCPCS: 36415; 71045; 74177; 78452; 80048; 80053; 80061; 81003; 83690; 83880; 84484; 85025; 93005; 93017; 93306; 93798; 96361; 96374; 96375; A9500; J1650; J1940; J2270; J2405; J2785; Q9966

== ENCOUNTER 2019-02-04 17:49 | Emergency (ER) | payer SELFPAY ==
--- NOTE | 2019-02-04 18:36 | RAD ---
Portable frontal chest radiograph 02/04/2019 COMPARISON: 01/24/2019 HISTORY: Shortness of breath with chest pain radiating to the left shoulder FINDINGS: Heart and mediastinal contours are within normal limits. Lungs appear clear. IMPRESSION: No acute findings.
[2019-02-04 18:38] LABS: #Basophils 0.1 thou/uL (0.0-0.2); #Eosinphils 0.5 thou/uL (0.0-0.7); #Lymphocytes 3.2 thou/uL (1.20-3.40); #Monocytes 1.1 thou/uL (0.11-0.59); #Neutrophils 7.2 thou/uL (1.40-6.50); %Basophils 0.9 % (0.0-1.0); %Eosinophils 4.5 % (0.0-10.0); %Lymphocytes 26.2 % (21.0-51.0); %Monocytes 8.9 % (0.0-10.0); %Neutrophils 59.5 % (42.0-75.0); Hemoglobin 15.3 g/dL (14.0-18.0); Mean Corpuscular HGB CONC 32.1 g/dL (32.0-36.0); Mean Corpuscular Hemoglobin 27.9 pg (27.0-31.0); Mean Corpuscular Volume 86.7 fL (78.0-98.0); Mean Platelet Volume 7.1 fL (7.4-10.4); Platelet Count 397 thou/uL (130-400); RBC Distribution Width 14.2 % (11.5-14.5); Red Blood Cell (RBC) Count 5.48 mill/uL (4.70-6.10)
[2019-02-04 18:54] LABS: ALT (SGPT) 30 U/L (8-55); AST (SGOT) 22 U/L (5-34); Albumin 4.2 g/dL (3.5-5.0); Alkaline Phosphatase 37 U/L (40-150); Anion Gap 15 mmol/L (10-20); BUN (Urea Nitrogen) 17 mg/dL (8.9-20.6); Bilirubin, Total 0.3 mg/dL (0.2-1.2); Calc. Creatinine Clearance 0 mL/min (70-130); Calcium 9.4 mg/dL (7.8-10.44); Carbon Dioxide 27 mmol/L (22-29); Chloride 100 mmol/L (98-107); Estimated GFR-MDRD 75; Globulin 2.7 g/dL (2.4-3.5); Glucose 98 mg/dL (70-105); Lipase 34 U/L (8-78); Potassium 4.7 mmol/L (3.5-5.1); Protein, Total 6.9 g/dL (6.0-8.3); Sodium 137 mmol/L (136-145)
== END 2019-02-04 20:45 | disposition left against medical advice (07) ==
LOC: ERS 17:49
DX: Z53.21 Procedure and treatment not carried out due to patient leaving prior to being seen by health care provider (principal)
CPT/HCPCS: 36415; 71045; 80053; 83690; 83880; 84484; 85025; 93005

== ENCOUNTER 2019-12-14 04:52 | Observation (INO) | payer SELFPAY ==
[2019-12-14 06:15] LABS: #Basophils 0.1 thou/uL (0.0-0.2); #Eosinphils 0.4 thou/uL (0.0-0.7); #Lymphocytes 2.5 thou/uL (1.20-3.40); #Monocytes 0.7 thou/uL (0.11-0.59); #Neutrophils 8.1 thou/uL (1.40-6.50); %Basophils 0.5 % (0.0-1.0); %Eosinophils 3.2 % (0.0-10.0); %Lymphocytes 21.5 % (21.0-51.0); %Monocytes 5.9 % (0.0-10.0); %Neutrophils 68.9 % (42.0-75.0); Hemoglobin 16.3 g/dL (14.0-18.0); Mean Corpuscular HGB CONC 33.6 g/dL (32.0-36.0); Mean Corpuscular Hemoglobin 29.9 pg (27.0-31.0); Mean Corpuscular Volume 88.9 fL (78.0-98.0); Mean Platelet Volume 8.5 fL (7.4-10.4); Platelet Count 304 thou/uL (130-400); RBC Distribution Width 13.1 % (11.5-14.5); Red Blood Cell (RBC) Count 5.44 mill/uL (4.70-6.10); White Blood Cell (WBC) Count 11.7 thou/uL (4.8-10.8)
[2019-12-14 06:26] LABS: Bilirubin Negative (Negative); Blood, Urine Negative (Negative); Clarity Clear (Clear); Glucose, Urine (Dipstick) Greater than 1000 mg/dL (Negative); Leukocyte Negative Leu/uL (Negative); Nitrite Negative (Negative); Protein, Urine (Dipstick) Negative (Neg-Trace); Urobilinogen Normal mg/dL (Less than 2)
[2019-12-14 07:54] LABS: ALT (SGPT) 32 U/L (8-55); AST (SGOT) 17 U/L (5-34); Albumin 4.4 g/dL (3.5-5.0); Alkaline Phosphatase 51 U/L (40-110); Anion Gap 15 mmol/L (10-20); BUN (Urea Nitrogen) 12 mg/dL (8.9-20.6); Bilirubin, Total 0.6 mg/dL (0.2-1.2); Calc. Creatinine Clearance 0 mL/min (70-130); Calcium 9.8 mg/dL (7.8-10.44); Carbon Dioxide 26 mmol/L (22-29); Chloride 94 mmol/L (98-107); Estimated GFR-MDRD 60; Magnesium 1.9 mg/dL (1.6-2.6); Potassium 4.3 mmol/L (3.5-5.1); Protein, Total 7.4 g/dL (6.0-8.3); Sodium 131 mmol/L (136-145)
[2019-12-14 08:00] LABS: Glucose 605 mg/dL (70-105)
[2019-12-14 08:11] LABS: Actual Bicarbonate (HCO3v) 26 mEq/L (22-28); Calcium, Ionized 1.11 mmol/L (1.16-1.32); Chloride (ABG LAB) 94 mmol/L (98-106); Hemoglobin (Hb) 16.6 g/dL (13.2-17.3); Sodium 132.1 mmol/L (133-146); pH (venous) 7.38 (7.32-7.43)
[2019-12-14] MEDS ORDERED: Insulin Regular 300 UNITS/3 ML VIAL ONE (08:15)
[2019-12-14] MEDS ORDERED: Dextrose 50% Abboject 50 ML SYRINGE SLOW IVP PRN (08:58)
[2019-12-14] MEDS ORDERED: Dextrose 5% in Water 1,000 ML IV PRN (08:58)
[2019-12-14 10:04] VITALS: BMI 36.8
[2019-12-14] MEDS: Sodium Chloride 0.9% 1,000 ML IV SCH ×2 (10:08→16:23)
[2019-12-14 10:25] LABS: Hemoglobin A1c 10.9 % (4.0-6.0)
[2019-12-14] MEDS ORDERED: Ondansetron ODT 4 MG TAB PO PRN (12:09)
[2019-12-14] MEDS ORDERED: Acetaminophen 325 MG TAB PO PRN (12:09)
[2019-12-14] MEDS ORDERED: Calcium Carbonate 500 MG ChewTAB PO PRN (12:09)
[2019-12-14] MEDS ORDERED: Ondansetron PF 4 MG/2 ML Vial IVP PRN (12:09)
[2019-12-14] MEDS ORDERED: glipiZIDE 5 MG TAB PO SCH (12:30)
[2019-12-14] MEDS ORDERED: NPH, Human Insulin Isophane 300 UNIT/3 ML VIAL SC SCH (12:30)
[2019-12-14] MEDS: Insulin Regular 300 UNITS/3 ML VIAL SC PRN ×3 (12:42→20:51)
--- NOTE | 2019-12-14 12:54 | HP ---
PRIMARY CARE PHYSICIAN: [facility]. CHIEF COMPLAINT: Dry mouth. HISTORY OF PRESENT ILLNESS: The patient is a 44-year-old male with systolic congestive heart failure and obesity, presented to the emergency room with above complaints. Over the last 1 week, the patient has generalized weakness along with increased thirst, dry mouth, and increased urination. His symptoms have been progressively getting worse. He lost his appetite. He also complains of one episode of red stool earlier today. He denies any hematemesis or blood in the stool otherwise prior to this. PAST MEDICAL HISTORY: 1. Chronic systolic heart failure, ejection fraction of 20% to 25%. 2. Hypertension. 3. CKD. 4. Tobacco dependence. 5. History of alcohol abuse. PAST SURGICAL HISTORY: Cholecystectomy. ALLERGIES: NO KNOWN DRUG ALLERGIES. CURRENT HOME MEDICATIONS: 1. Lasix 40 mg twice a day. 2. Carvedilol 25 mg b.i.d. 3. Lisinopril 20 mg b.i.d. 4. Aldactone 25 mg b.i.d. 5. Aspirin 81 mg daily. SOCIAL HISTORY: The patient continues to smoke on and off up to one pack a day. He denies alcohol use. He has history of cocaine abuse in the past. FAMILY HISTORY: Positive for heart disease. REVIEW OF SYSTEMS: All other review of systems were reviewed and were found negative. PHYSICAL EXAMINATION: VITAL SIGNS: Temperature 98.8, respirations of 16, pulse rate of 98, blood pressure of 143/92 with O2 saturation 97% on room air. GENERAL: A 44-year-old male, in no apparent distress, feels much better after IV fluids. HEENT: Head, atraumatic and normocephalic. Sclerae anicteric. Dry mucous membranes. No oral lesion. NECK: Supple. No JVD appreciated. No carotid bruit. LUNGS: Clear to auscultation bilaterally. No wheezing, rales, or rhonchi. HEART: S1 and S2 present. Regular rate and rhythm. No rubs or gallops. ABDOMEN: Soft, nontender. Bowel sounds present. No rebound or guarding. No costovertebral angle tenderness. EXTREMITIES: No edema or calf tenderness. NEUROLOGIC: Grossly nonfocal. Moves all 4 extremities. PSYCHIATRY: Alert, awake, oriented x3. SKIN: Warm and dry. LYMPH NODES: No palpable lymph nodes in the neck. LABORATORY FINDINGS: CBC showed WBC 11.7 with hemoglobin 16.3, hematocrit 48.4, platelets 304. Chemistry showed sodium 131, potassium 4.3, chloride 94, bicarb 26, BUN 12, creatinine 1.54. His baseline creatinine is around 1.1. Blood sugar was 605. Hemoglobin A1c 10.9. Urinalysis was negative. Beta hydroxybutyrate was 0.74. Stool for occult blood was negative. IMAGING STUDIES: Chest x-ray by my review from last admission was negative for acute findings. IMPRESSION: 1. Dehydration secondary to new onset diabetes. 2. Acute kidney injury on chronic kidney disease, stage 2. 3. Hyponatremia. 4. Chronic systolic heart failure, ejection fraction 20% to 25% range. 5. One episode of reddish bowel movement. His hemoglobin was 16.3 with negative Hemoccult. 6. Obesity with a BMI of 36.8. PLAN: 1. The patient will be monitored on the medical floor as 23-hour observation. He will be started on glipizide along with low-dose NPH. We will hold metformin due to acute kidney injury. Gentle IV hydration for 2 L. We will check glucose the every 4 hours and cover with moderate sliding scale. We will consult dietitian. Lifestyle modification including weight loss was recommended. 2. The patient understands the above plan of care. Job ID: [id number]
[2019-12-14] MEDS: glipiZIDE 5 MG TAB PO SCH (16:23)
[2019-12-15] MEDS: Insulin Regular 300 UNITS/3 ML VIAL SC PRN (00:16)
[2019-12-15 04:56] LABS: Hemoglobin 13.8 g/dL (14.0-18.0); Platelet Count 242 thou/uL (130-400)
[2019-12-15 05:16] LABS: Anion Gap 10 mmol/L (10-20); BUN (Urea Nitrogen) 10 mg/dL (8.9-20.6); Calc. Creatinine Clearance 142 mL/min (70-130); Calcium 8.5 mg/dL (7.8-10.44); Carbon Dioxide 27 mmol/L (22-29); Chloride 103 mmol/L (98-107); Estimated GFR-MDRD Greater than 90; Glucose 186 mg/dL (70-105); Magnesium 1.6 mg/dL (1.6-2.6); Potassium 3.6 mmol/L (3.5-5.1); Sodium 136 mmol/L (136-145)
[2019-12-15] MEDS: glipiZIDE 5 MG TAB PO SCH (08:45)
[2019-12-15] MEDS ORDERED: Magnesium 2 GM/50 ML 2 GM in Premix Bag 1 BAG IVPB SCH (08:45)
[2019-12-15] MEDS ORDERED: NPH, Human Insulin Isophane 300 UNIT/3 ML VIAL SC SCH (09:00)
[2019-12-15] MEDS ORDERED: metFORMIN 500 MG TAB PO SCH ×2 (09:15→17:00)
[2019-12-15 12:41] VITALS: BP 157/97; TEMP 97.8
--- NOTE | 2019-12-15 21:28 | DIS ---
DATE OF ADMISSION: 12/14/2019 DATE OF DISCHARGE: 12/15/2019 DISCHARGE DISPOSITION: Home. Follow up with [facility] in 1 week. DISCHARGE MEDICATIONS: 1. Glipizide 5 mg twice a day. 2. Metformin 500 mg b.i.d. All other home medications were left unchanged. Please note, the patient declined insulin. The patient was advised to monitor blood sugar on a daily basis and to maintain a log. BRIEF HOSPITAL COURSE: The patient is a 44-year-old male with congestive heart failure and obesity, presented to the hospital with dry mouth along with increased urination. His blood sugar in the emergency room was 605. His hemoglobin A1c was 10.9. His symptoms significantly improved after initiation of glipizide along with IV fluids and NPH insulin. He was extensively counseled on diabetes by me as well as by the dietitian. Insulin teaching was provided. The patient prefers to go home with glipizide and metformin. He wants to hold insulin for now. He was advised to follow up with [facility] with a blood sugar log. He also had acute renal insufficiency with creatinine of 1.54 on admission that has resolved. His creatinine at discharge is 1.03. FINAL DIAGNOSES: 1. Dehydration with acute kidney injury on chronic kidney disease stage 2, secondary to new onset diabetes. 2. Hyponatremia. 3. Chronic systolic heart failure, ejection fraction 20% to 25% range. 4. Hypomagnesemia, corrected. 5. Obesity with a BMI of 36.8. 6. One episode of reddish bowel movement. Please note that hemoccult was negative. The patient understands the above plan of care. Job ID: [id number]
== END 2019-12-15 13:05 | disposition home or self-care (01) ==
LOC: ERS 04:52 → 2SW 09:57
PROVIDERS: ADMIT Internal Medicine; ATTEND Internal Medicine
DX: E86.0 Dehydration (principal); N17.9 Acute kidney failure, unspecified; I13.0 Hypertensive heart and chronic kidney disease with heart failure and stage 1 through stage 4 chronic kidney disease, or unspecified chronic kidney disease; E11.22 Type 2 diabetes mellitus with diabetic chronic kidney disease; N18.2 Chronic kidney disease, stage 2 (mild); I50.22 Chronic systolic (congestive) heart failure; F17.210 Nicotine dependence, cigarettes, uncomplicated; E66.9 Obesity, unspecified; Z68.36 Body mass index [BMI] 36.0-36.9, adult; Z79.82 Long term (current) use of aspirin; Z79.84 Long term (current) use of oral hypoglycemic drugs; Z79.899 Other long term (current) drug therapy
CPT/HCPCS: 36415; 36416; 80048; 80053; 81003; 82010; 82274; 82805; 83036; 83735; 85014; 85018; 85025; 85049; 96361; 96374; 96375; G0378; J1815; J3475

== ENCOUNTER 2020-08-03 11:33 | Observation (INO) | payer OTHER, SELFPAY ==
[2020-08-03 12:42] LABS: Bilirubin Negative (Negative); Blood, Urine Negative (Negative); Clarity Clear (Clear); Glucose, Urine (Dipstick) Greater than 1000 mg/dL (Negative); Ketone, Urine 100 mg/dL (Negative); Leukocyte Negative Leu/uL (Negative); Nitrite Negative (Negative); Protein, Urine (Dipstick) Negative (Neg-Trace); Specific Gravity, Urine 1.033 (1.002-1.036); Urobilinogen Normal mg/dL (Less than 2); pH, Urine 5.5 (5.0-9.0)
[2020-08-03 12:43] LABS: #Basophils 0.1 thou/uL (0.0-0.2); #Eosinphils 0.2 thou/uL (0.0-0.7); #Lymphocytes 1.9 thou/uL (1.20-3.40); #Monocytes 0.7 thou/uL (0.11-0.59); #Neutrophils 6.5 thou/uL (1.40-6.50); %Basophils 1.5 % (0.0-1.0); %Eosinophils 2.1 % (0.0-10.0); %Lymphocytes 20.1 % (21.0-51.0); %Monocytes 7.3 % (0.0-10.0); %Neutrophils 68.9 % (42.0-75.0); Hemoglobin 16.2 g/dL (14.0-18.0); Mean Corpuscular HGB CONC 33.6 g/dL (32.0-36.0); Mean Corpuscular Hemoglobin 29.6 pg (27.0-31.0); Mean Corpuscular Volume 88.1 fL (78.0-98.0); Mean Platelet Volume 8.1 fL (7.4-10.4); Platelet Count 261 thou/uL (130-400); RBC Distribution Width 12.6 % (11.5-14.5); Red Blood Cell (RBC) Count 5.47 mill/uL (4.70-6.10); White Blood Cell (WBC) Count 9.4 thou/uL (4.8-10.8)
[2020-08-03 13:05] LABS: ALT (SGPT) 23 U/L (8-55); AST (SGOT) 21 U/L (5-34); Albumin 3.8 g/dL (3.5-5.0); Alkaline Phosphatase 53 U/L (40-110); Anion Gap 21 mmol/L (10-20); BUN (Urea Nitrogen) 15 mg/dL (8.9-20.6); Bilirubin, Total 0.4 mg/dL (0.2-1.2); Calc. Creatinine Clearance 0 mL/min (70-130); Calcium 9.6 mg/dL (7.8-10.44); Carbon Dioxide 21 mmol/L (22-29); Chloride 93 mmol/L (98-107); Estimated GFR-MDRD 73; Globulin 2.8 g/dL (2.4-3.5); Potassium 4.6 mmol/L (3.5-5.1); Protein, Total 6.6 g/dL (6.0-8.3); Sodium 130 mmol/L (136-145)
[2020-08-03 13:18] LABS: Glucose 557 mg/dL (70-105)
[2020-08-03] MEDS ORDERED: Nicotine 21 MG PATCH TD SCH (14:47)
[2020-08-03] MEDS ORDERED: Acetaminophen 325 MG TAB PO PRN (14:47)
[2020-08-03] MEDS ORDERED: HumaLOG 300 UNITS/3 ML VIAL SC PRN (14:47)
[2020-08-03] MEDS ORDERED: Guaifenesin DM 100-10/5 ML UDCUP PO PRN (14:47)
[2020-08-03] MEDS ORDERED: Senokot S 8.6-50 MG TAB PO PRN (14:47)
[2020-08-03] MEDS ORDERED: Dextrose 50% Abboject 50 ML SYRINGE SLOW IVP PRN (14:47)
[2020-08-03] MEDS ORDERED: HYDROcodone/Acetaminophen 5/325 mg Tablet PO PRN (14:47)
[2020-08-03] MEDS ORDERED: Dextrose 5% in Water 1,000 ML IV PRN (14:47)
[2020-08-03] MEDS ORDERED: Calcium Carbonate 500 MG ChewTAB PO PRN (14:47)
[2020-08-03] MEDS ORDERED: Ondansetron PF 4 MG/2 ML Vial IVP PRN (14:47)
[2020-08-03] MEDS ORDERED: Sodium Chloride 0.9% 1,000 ML IV SCH (14:47)
[2020-08-03] MEDS ORDERED: Bisacodyl 10 MG SUPP PR PRN (14:47)
--- NOTE | 2020-08-03 15:18 | HP ---
REASON FOR ADMISSION: Diabetes mellitus type 2, uncontrolled. Moderate dehydration. HISTORY OF PRESENTING ILLNESS: The patient gives history of not feeling well at home. He was apparently [facility] when his blood sugar was found to be elevated. On arrival here, the patient had serum glucose of 557. The patient admits to drinking lots of soda water and eating cakes. He is not compliant with diet. He states he is compliant with medication including insulin which he takes 40 units twice daily. He lives with his . No complaints of cough or expectoration. No complaints of urinary frequency or urgency. No wounds or nausea or abdominal pain. States he has not had any exposure to COVID as such. PAST MEDICAL AND SURGICAL HISTORY: History of CHF with ejection fraction of around 25%, hypertension, diabetes mellitus type 2, dyslipidemia, tobacco abuse, prior history of substance use, cholecystectomy. PERSONAL HISTORY: Smokes one pack a day. Denies alcohol use or substance use now. He has done drugs in the past. FAMILY HISTORY: Both parents are living. Mother has unknown cancer. Father is healthy. The patient lives with his and has 7 children. CURRENT MEDICATIONS: The patient is on, 1. Spironolactone 25 mg twice daily. 2. Carvedilol 25 mg twice daily. 3. Lasix 40 mg at 9:00 a.m. and 2:00 p.m. 4. Lisinopril 20 mg twice daily. 5. Aspirin 81 mg daily. 6. Metformin 500 mg twice daily. 7. Glipizide 5 mg twice daily. 8. Unknown insulin 40 units subcu twice daily. ALLERGIES: NO KNOWN DRUG ALLERGIES. CODE STATUS: Full. Power of banking attorney is his . REVIEW OF SYSTEMS: CONSTITUTIONAL: Negative for weight loss or gain, ability to conduct usual activities. SKIN: Negative for rash, itching. EYES: Negative for double vision, pain. ENT/MOUTH: Negative for nose bleeding, neck stiffness, pain, tenderness. CARDIOVASCULAR: Negative for palpitations, dyspnea on exertion, orthopnea. RESPIRATORY: Negative for shortness of breath, wheezing, cough, hemoptysis, fever or night sweats. GASTROINTESTINAL: Negative for poor appetite, abdominal pain, heartburn, nausea, vomiting, constipation, or diarrhea. GENITOURINARY: Negative for urgency, frequency, dysuria, nocturia. MUSCULOSKELETAL: Negative for pain, swelling. NEUROLOGIC/PSYCHIATRIC: Negative for anxiety, depression. ALLERGY/IMMUNOLOGIC: Negative for skin rash, bleeding tendency. PHYSICAL EXAMINATION: GENERAL: The patient is a 44-year-old male, who is currently not in any acute distress. VITAL SIGNS: Blood pressure 126/78, pulse 74 per minute, respiratory rate 16 per minute, temperature 98.2 degrees Fahrenheit, and saturating 100% on room air. NECK: Supple. No elevated JVD. HEENT: Eyes; extraocular muscles intact. Pupils reacting to light. Oral cavity, mucous membranes are dry. No exudates or congestion. CARDIOVASCULAR: S1 and S2 heard. Regular rhythm. RESPIRATORY: Air entry 1+ bilateral. No rales or rhonchi. ABDOMEN: Soft. Bowel sounds heard. No tenderness, rigidity, or guarding. EXTREMITIES: No peripheral edema or calf tenderness. VASCULAR: Peripheral pulses 1+ bilateral. No ischemic ulcerations or gangrene. CENTRAL NERVOUS SYSTEM: No gross focal motor deficits noted. The patient is alert, awake, oriented well. PSYCHIATRIC: The patient's mood is euthymic. No hallucinations or delusions. LABORATORY DATA: White count of 9 and H 16 and 48, platelet count 261, MCV is 88 with 68% neutrophils. Sodium 130, serum bicarb 21, BUN 15, creatinine 1.3, serum glucose 557. Liver enzymes are within normal limits. Albumin is 3.8. There is no evidence of UTI on the urinalysis. CLINICAL IMPRESSION AND PLAN: The patient will be placed under observation on medical floor for diabetes mellitus type 2, uncontrolled. He is noncompliant with diet. The patient was counseled with regard to strict dietary compliance with regard to both diabetes and heart failure. He clinically appears to have moderate dehydration likely from diuresis that he has been going through for his heart failure with systolic dysfunction. He currently is well compensated. We will give him normal saline 100 mL per hour for a total of 1 L. We will also add Lantus 15 units subcu twice daily and increase his metformin 500 mg to three times daily. We will continue his glipizide as before. We will continue aspirin, Coreg, lisinopril, and Lasix once daily. We will hold off spironolactone for now. Job ID: [id number]
[2020-08-03] MEDS: metFORMIN 500 MG TAB PO SCH ×2 (18:26→21:31)
[2020-08-03] MEDS: glipiZIDE 5 MG TAB PO SCH (18:26)
[2020-08-03] MEDS: Famotidine 20 MG TAB PO SCH (21:31)
[2020-08-03] MEDS: Lisinopril 20 MG TAB PO SCH (21:31)
[2020-08-03] MEDS: Carvedilol 25 MG TAB PO SCH (21:31)
[2020-08-03] MEDS: Insulin Glargine 15 UNITS in Pre-Filled Syringe 1 EACH SC SCH (21:32)
[2020-08-04] MEDS: HumaLOG 300 UNITS/3 ML VIAL SC PRN ×2 (05:26→11:44)
[2020-08-04 05:50] LABS: #Basophils 0.1 thou/uL (0.0-0.2); #Eosinphils 0.4 thou/uL (0.0-0.7); #Lymphocytes 3.5 thou/uL (1.20-3.40); #Monocytes 0.8 thou/uL (0.11-0.59); #Neutrophils 4.6 thou/uL (1.40-6.50); %Basophils 1.4 % (0.0-1.0); %Eosinophils 3.9 % (0.0-10.0); %Lymphocytes 37.4 % (21.0-51.0); %Monocytes 8.6 % (0.0-10.0); %Neutrophils 48.6 % (42.0-75.0); Hemoglobin 13.9 g/dL (14.0-18.0); Mean Corpuscular Hemoglobin 29.7 pg (27.0-31.0); Mean Corpuscular Volume 87.4 fL (78.0-98.0); Mean Platelet Volume 8.1 fL (7.4-10.4); Platelet Count 259 thou/uL (130-400); RBC Distribution Width 12.5 % (11.5-14.5); Red Blood Cell (RBC) Count 4.69 mill/uL (4.70-6.10); White Blood Cell (WBC) Count 9.4 thou/uL (4.8-10.8)
[2020-08-04 06:06] LABS: Anion Gap 13 mmol/L (10-20); BUN (Urea Nitrogen) 9 mg/dL (8.9-20.6); Calc. Creatinine Clearance 76 mL/min (70-130); Calcium 8.3 mg/dL (7.8-10.44); Carbon Dioxide 23 mmol/L (22-29); Chloride 100 mmol/L (98-107); Estimated GFR-MDRD Greater than 90; Glucose 204 mg/dL (70-105); Potassium 3.4 mmol/L (3.5-5.1); Sodium 133 mmol/L (136-145)
[2020-08-04] MEDS ORDERED: Furosemide 40 MG TAB PO SCH (09:00)
[2020-08-04] MEDS ORDERED: Aspirin 81 mg Enteric Coated Tablet PO SCH (09:00)
[2020-08-04] MEDS ORDERED: FLU VACC QS2020-21(6MOS UP)/PF 60 MCG/0.5 ML SYRINGE IM ONE (09:00)
[2020-08-04] MEDS ORDERED: Enoxaparin Sodium 40 MG/0.4 ML SYRINGE SC SCH (09:00)
[2020-08-04] MEDS: Insulin Glargine 15 UNITS in Pre-Filled Syringe 1 EACH SC SCH (09:12)
[2020-08-04] MEDS: glipiZIDE 5 MG TAB PO SCH (09:12)
[2020-08-04] MEDS: Famotidine 20 MG TAB PO SCH (09:12)
[2020-08-04] MEDS: Carvedilol 25 MG TAB PO SCH (09:13)
[2020-08-04] MEDS: Lisinopril 20 MG TAB PO SCH (09:14)
[2020-08-04] MEDS: metFORMIN 500 MG TAB PO SCH (09:14)
[2020-08-04 11:09] LABS: SARS-CoV-2 MS2 Positive; SARS-CoV-2 N Gene Negative; SARS-CoV-2 S Gene Negative; SARS-CoV-2 by NAA Not Detected (NotDetected); SARS-CoV-2 orf1ab Negative
[2020-08-04 11:41] VITALS: BP 108/69; TEMP 98.6
[2020-08-04 12:27] VITALS: BMI 16.9
[2020-08-04 13:14] LABS: Base Excess-Venous -2.6 mmol/L (-2.0 to 3.0); Bicarbonate (HCO3v) 22.2 mmol/L (22.0-28.0); CO2 Tension (PvCO2) 38.3 mmHg (40.0-50.0)
[2020-08-04 13:15] LABS: Calcium, Ionized 1.05 mmol/L (1.15-1.33); Chloride 97 mmol/L (98-107); Potassium 4.6 mmol/L (3.5-5.1); Sodium 129 mmol/L (138-145); T. Carbon Dioxide 23.4 mmol/L (22.0-28.0); vO2 Saturation-calc 91.6 % (60.0-85.0)
--- NOTE | 2020-08-04 15:42 | DIS ---
DATE OF ADMISSION: 08/03/2020 DATE OF DISCHARGE: 08/04/2020 DISCHARGE DISPOSITION: Home. PRIMARY DISCHARGE DIAGNOSES: Diabetes mellitus type 2, uncontrolled; moderate dehydration. SECONDARY DISCHARGE DIAGNOSES: History of congestive heart failure with ejection fraction of around 25%, well compensated now; hypertension; dyslipidemia; tobacco abuse. PROCEDURES DONE DURING HOSPITALIZATION: H and H 13 and 40, platelet count 259, MCV is 87. BUN 9, creatinine 0.8. Initial serum glucose was 557. Liver enzymes within normal limits. Albumin 3.8. Serum bicarb 23 on the day of discharge. COVID-19 PCR was not detected on 08/03/2020. DISCHARGE MEDICATIONS: 1. Metformin 1000 mg twice daily. 2. Glipizide 5 mg twice daily. 3. Lasix 40 mg daily. 4. Aspirin 81 mg p.o. daily. 5. Lisinopril 20 mg twice daily. 6. Carvedilol 25 mg twice daily. ALLERGIES: NO KNOWN DRUG ALLERGIES. DISCHARGE PLAN: The patient to follow up with his primary care physician at [facility] in 1 week. He also needs to follow up with [facility] as before. BRIEF COURSE DURING HOSPITALIZATION: The patient initially came to ER with complaints of not feeling well at home. His initial serum glucose was 557. The patient admitted to being noncompliant with diet and was eating lot of cake and drinking sodas. He also had moderate dehydration likely from his heart failure medications/diuretics. The patient was admitted to medical floor under observation. He was gently hydrated during his stay. The patient's medications were optimized during his brief stay here. His metformin has been doubled to twice daily. He was counseled with regard to medication and dietary compliance. He is hemodynamically stable. Please note, the patient's Lasix has been reduced to once daily at the time of discharge. He is ambulating and eating well prior to discharge. Please note I have seen and examined the patient on the day of discharge. Job ID: [id number]
== END 2020-08-04 13:26 | disposition home or self-care (01) ==
LOC: ERS 11:33 → ERHOLD 14:33 → T4-A 17:57
PROVIDERS: ADMIT Internal Medicine; ATTEND Internal Medicine
DX: E11.65 Type 2 diabetes mellitus with hyperglycemia (principal); E86.0 Dehydration; I11.0 Hypertensive heart disease with heart failure; I50.9 Heart failure, unspecified; E78.5 Hyperlipidemia, unspecified; F17.210 Nicotine dependence, cigarettes, uncomplicated; F14.11 Cocaine abuse, in remission; Z91.11 Patient's noncompliance with dietary regimen; Z79.4 Long term (current) use of insulin; Z79.82 Long term (current) use of aspirin; Z79.899 Other long term (current) drug therapy; Z20.828 Contact with and (suspected) exposure to other viral communicable diseases
CPT/HCPCS: 36415; 36416; 80048; 80053; 81003; 82010; 82330; 82803; 85025; 87635; 90471; 90662; 90732; 96372; 99285; G0008; G0009; G0378; J1650; J1815; U0003

== ENCOUNTER 2021-12-05 16:08 | Inpatient (IN) | payer OTHER ==
[2021-12-05 16:36] LABS: #Basophils 0.1 thou/uL (0.0-0.2); #Eosinphils 0.3 thou/uL (0.0-0.7); #Lymphocytes 2.8 thou/uL (1.20-3.40); #Monocytes 0.8 thou/uL (0.11-0.59); #Neutrophils 5.1 thou/uL (1.40-6.50); %Basophils 0.8 % (0.0-1.0); %Eosinophils 3.8 % (0.0-10.0); %Monocytes 8.6 % (0.0-10.0); %Neutrophils 55.8 % (42.0-75.0); Hemoglobin 15.9 g/dL (14.0-18.0); Mean Corpuscular HGB CONC 32.6 g/dL (32.0-36.0); Mean Corpuscular Hemoglobin 30.9 pg (27.0-31.0); Mean Corpuscular Volume 94.9 fL (78.0-98.0); Platelet Count 342 thou/uL (130-400); RBC Distribution Width 12.3 % (11.5-14.5); Red Blood Cell (RBC) Count 5.16 mill/uL (4.70-6.10); White Blood Cell (WBC) Count 9.1 thou/uL (4.8-10.8)
[2021-12-05 16:59] LABS: ALT (SGPT) 11 U/L (8-55); AST (SGOT) 12 U/L (5-34); Albumin 4.3 g/dL (3.5-5.0); Alkaline Phosphatase 31 U/L (40-110); Anion Gap 14 mmol/L (10-20); BUN (Urea Nitrogen) 10 mg/dL (8.9-20.6); Bilirubin, Total 0.4 mg/dL (0.2-1.2); Calc. Creatinine Clearance 0 mL/min (70-130); Calcium 9.7 mg/dL (7.8-10.44); Carbon Dioxide 28 mmol/L (22-29); Chloride 102 mmol/L (98-107); Globulin 2.8 g/dL (2.4-3.5); Glucose 155 mg/dL (70-105); Lipase 8 U/L (8-78); Potassium 3.9 mmol/L (3.5-5.1); Protein, Total 7.1 g/dL (6.0-8.3); Sodium 140 mmol/L (136-145)
[2021-12-05] MEDS ORDERED: Aspirin Chewable 81 MG TAB ONE (17:55)
[2021-12-05] MEDS ORDERED: Acetaminophen 500 MG TAB ONE (21:13)
[2021-12-05 22:15] VITALS: BMI 23.3
[2021-12-05] MEDS ORDERED: Ondansetron PF 4 MG/2 ML Vial IVP PRN (23:04)
[2021-12-05] MEDS ORDERED: Acetaminophen 325 MG TAB PO PRN (23:04)
[2021-12-05] MEDS ORDERED: Nitroglycerin 0.4 MG TAB (25 Tab Bottle) SL PRN (23:04)
[2021-12-05] MEDS ORDERED: HYDROcodone/Acetaminophen 7.5/325 mg Tablet PO SCH (23:15)
[2021-12-06] MEDS ORDERED: Dextrose 5% in Water 1,000 ML IV PRN (00:12)
[2021-12-06] MEDS ORDERED: Dextrose 50% Abboject 50 ML SYRINGE SLOW IVP PRN (00:12)
[2021-12-06] MEDS ORDERED: HumaLOG 300 UNITS/3 ML VIAL SC PRN ×2 (00:12)
[2021-12-06] MEDS: Senokot S 8.6-50 MG TAB PO SCH ×2 (01:32→12:02)
[2021-12-06] MEDS: hydrALAZINE 20 MG/ML VIAL SLOW IVP PRN ×2 (01:32→14:08)
[2021-12-06 01:51] LABS: Troponin I Less than 0.010 ng/mL (< 0.028)
[2021-12-06] MEDS ORDERED: Morphine 4 MG/ML VIAL SLOW IVP SCH (04:15)
[2021-12-06] MEDS ORDERED: Lisinopril 20 MG TAB PO SCH ×2 (05:15→09:00)
[2021-12-06 06:56] LABS: #Basophils 0.1 thou/uL (0.0-0.2); #Eosinphils 0.4 thou/uL (0.0-0.7); #Monocytes 0.7 thou/uL (0.11-0.59); #Neutrophils 3.7 thou/uL (1.40-6.50); %Basophils 0.8 % (0.0-1.0); %Eosinophils 5.2 % (0.0-10.0); %Lymphocytes 38.1 % (21.0-51.0); %Neutrophils 46.9 % (42.0-75.0); Hemoglobin 14.3 g/dL (14.0-18.0); Mean Corpuscular HGB CONC 32.9 g/dL (32.0-36.0); Mean Corpuscular Hemoglobin 30.8 pg (27.0-31.0); Mean Corpuscular Volume 93.7 fL (78.0-98.0); Platelet Count 304 thou/uL (130-400); RBC Distribution Width 12.2 % (11.5-14.5); Red Blood Cell (RBC) Count 4.64 mill/uL (4.70-6.10); White Blood Cell (WBC) Count 7.9 thou/uL (4.8-10.8)
[2021-12-06 07:01] LABS: Hemoglobin A1c 8.4 % (4.0-6.0)
[2021-12-06 07:19] LABS: Troponin I Less than 0.010 ng/mL (< 0.028)
[2021-12-06 07:20] LABS: Anion Gap 11 mmol/L (10-20); BUN (Urea Nitrogen) 9 mg/dL (8.9-20.6); Calc. Creatinine Clearance 127 mL/min (70-130); Carbon Dioxide 25 mmol/L (22-29); Cardiac Risk 3.6 (Less than 4.5); Chloride 103 mmol/L (98-107); Cholesterol 112 mg/dl (< 200 Desired); Glucose 137 mg/dL (70-105); HDL Cholesterol 31 mg/dL (>60 Neg Risk); LDL Cholesterol, Calculated 61 mg/dL; Potassium 3.5 mmol/L (3.5-5.1); Sodium 135 mmol/L (136-145); Triglycerides 102 mg/dL (Less than 150)
[2021-12-06] MEDS ORDERED: Lantus 1000 UNITS/10 ML VIAL SC SCH ×2 (09:00→21:00)
[2021-12-06] MEDS: HYDROcodone/Acetaminophen 5/325 mg Tablet PO PRN ×3 (10:33→20:54)
[2021-12-06] MEDS: Empagliflozin 10 MG TAB PO SCH ×2 (10:33→15:27)
[2021-12-06] MEDS: glipiZIDE 5 MG TAB PO SCH ×2 (10:33→15:27)
[2021-12-06] MEDS: Aspirin 81 mg Enteric Coated Tablet PO SCH (10:34)
[2021-12-06] MEDS: Enoxaparin Sodium 40 MG/0.4 ML SYRINGE SC SCH (10:34)
[2021-12-06] MEDS: Furosemide 40 MG TAB PO SCH (10:34)
[2021-12-06] MEDS: Polyethylene Glycol 3350 17 GM Packet PO SCH (10:34)
[2021-12-06 11:39] LABS: SARS-CoV-2 PCR by NAA Not Detected (NotDetected)
[2021-12-06] MEDS ORDERED: ADENOSINE 60 MG/20 ML VIAL ONE (11:56)
[2021-12-06] MEDS: Lantus 1000 UNITS/10 ML VIAL SC SCH (20:55)
[2021-12-06] MEDS: Lisinopril 20 MG TAB PO SCH (20:56)
[2021-12-06] MEDS: Carvedilol 25 MG TAB PO SCH (20:57)
[2021-12-07] MEDS: Senokot S 8.6-50 MG TAB PO SCH (01:15)
[2021-12-07 04:59] LABS: #Basophils 0.1 thou/uL (0.0-0.2); #Eosinphils 0.3 thou/uL (0.0-0.7); #Lymphocytes 2.7 thou/uL (1.20-3.40); #Monocytes 0.8 thou/uL (0.11-0.59); #Neutrophils 4.9 thou/uL (1.40-6.50); %Basophils 0.7 % (0.0-1.0); %Eosinophils 3.6 % (0.0-10.0); %Lymphocytes 30.5 % (21.0-51.0); %Monocytes 8.7 % (0.0-10.0); %Neutrophils 56.5 % (42.0-75.0); Hemoglobin 14.9 g/dL (14.0-18.0); Mean Corpuscular HGB CONC 32.6 g/dL (32.0-36.0); Mean Corpuscular Hemoglobin 30.6 pg (27.0-31.0); Mean Corpuscular Volume 93.9 fL (78.0-98.0); Platelet Count 346 thou/uL (130-400); RBC Distribution Width 12.4 % (11.5-14.5); Red Blood Cell (RBC) Count 4.86 mill/uL (4.70-6.10); White Blood Cell (WBC) Count 8.7 thou/uL (4.8-10.8)
[2021-12-07 05:23] LABS: Anion Gap 12 mmol/L (10-20); BUN (Urea Nitrogen) 11 mg/dL (8.9-20.6); Calc. Creatinine Clearance 122 mL/min (70-130); Calcium 9.3 mg/dL (7.8-10.44); Carbon Dioxide 25 mmol/L (22-29); Chloride 102 mmol/L (98-107); Glucose 60 mg/dL (70-105); Potassium 3.4 mmol/L (3.5-5.1); Sodium 136 mmol/L (136-145)
[2021-12-07] MEDS: HYDROcodone/Acetaminophen 5/325 mg Tablet PO PRN (06:10)
[2021-12-07] MEDS: Carvedilol 25 MG TAB PO SCH (08:10)
[2021-12-07] MEDS: Empagliflozin 10 MG TAB PO SCH (08:10)
[2021-12-07] MEDS: Aspirin 81 mg Enteric Coated Tablet PO SCH (08:10)
[2021-12-07] MEDS: glipiZIDE 5 MG TAB PO SCH (08:10)
[2021-12-07] MEDS: Furosemide 40 MG TAB PO SCH (08:10)
[2021-12-07] MEDS: Polyethylene Glycol 3350 17 GM Packet PO SCH (08:12)
[2021-12-07] MEDS: Lisinopril 20 MG TAB PO SCH (08:12)
[2021-12-07] MEDS: Enoxaparin Sodium 40 MG/0.4 ML SYRINGE SC SCH (08:13)
[2021-12-07] MEDS: Lantus 1000 UNITS/10 ML VIAL SC SCH (08:14)
[2021-12-07 08:21] VITALS: BP 144/96; TEMP 98.2
== END 2021-12-07 10:30 | disposition home or self-care (01) | DRG 313 ==
LOC: ERS 16:08 → NEURO 20:09 → INTOOBSV 20:09 → OBSVTOIN 12-06 17:35
PROVIDERS: ADMIT Internal Medicine; ATTEND Internal Medicine
DX: R07.89 Other chest pain (principal); I50.22 Chronic systolic (congestive) heart failure; Z20.822 Contact with and (suspected) exposure to COVID-19; Z23 Encounter for immunization; I11.0 Hypertensive heart disease with heart failure; E78.5 Hyperlipidemia, unspecified; E11.40 Type 2 diabetes mellitus with diabetic neuropathy, unspecified; F17.210 Nicotine dependence, cigarettes, uncomplicated; Z90.49 Acquired absence of other specified parts of digestive tract; Z79.82 Long term (current) use of aspirin; Z79.4 Long term (current) use of insulin; Z79.899 Other long term (current) drug therapy
CPT/HCPCS: 36415; 36416; 70450; 70551; 71045; 78452; 80048; 80053; 80061; 83036; 83690; 83880; 84484; 85025; 93005; 93017; 93306; 96372; 96374; 96375; 96376; A9500; G0378; J0153; J0360; J1650; J1815; J2270; U0003; U0005